=== PATIENT | male | born 1925 | race Caucasian/White ===

== ENCOUNTER → 2017-01-23 | Outpatient (REF) ==
[~2017-01-23] MED LIST: A&D OINTMENT TOP; ALDACTONE 25MG25 M1 PO; ALLERGY RELIEF10 MG PO; ASPIRIN E.C. 8181 MG PO; ASTELIN NASAL S34 ML NS; ATROVENT INHALE14 GM IH; BROVANA15 MCG/2 M IH; BROVANA15 MCG/2 M INH; BUDESONIDE0.25 MG/2 IH; BUDESONIDE0.5 MG/2 M IH; CIPRO 500MG TA500 MG PO; COLACE 100100 MG/CAP PO; COREG3.125 MG PO; COUMADIN 22.5 MG/TAB PO; COUMADIN 5MG5 MG/TAB PO; COUMADIN5 M1 PO; COUMADIN5 MG PO; DESYREL 50MG50 MG PO; EUCERIN1 CRE TOP; FLEET ENEM1 BOT/133 RC; FLONASE0.05 MG/AC NS; FLONASEALLERGY NS; INCRUSE EL62.5 MCG/A IH; KLOR-CON 1010 MEQ PO; LASIX 40MG TABL40 MG PO; LASIX20 MG PO; LEADER CLE17 GM/Dose PO; LIDOJEL UR; MILK OF MA400 MG/52 PO; NIACIN250 M2 PO; PRILOSEC 20MG20 MG PO; PRILOSEC20 M1 PO; PULMICORT0.5 MG/2 M IH; SINGULAIR 110 MG/TAB PO; SINGULAIR10 MG PO; SPIRIVA INH IH; THEO-DUR300 MG PO; THEOPHYLLINE E200 M1 PO; TRAZODONE100 MG PO; TRIAMTERENE/HCT1 TAB PO; TUMS500 MG PO; TYLENOL 325MG325 MG PO; WARFARIN SOD5 MG PO; ZOCOR80 MG PO; ZYLOPRIM 100MG100 MG PO; ZYRTEC10 M1 PO; ZYRTEC10 MG PO
== END ==
LOC: ZLAB.WCH 15:40
DX: Z02.89 Encounter for other administrative examinations (principal)

== ENCOUNTER → 2017-01-23 | Outpatient (REF) | LOC: ZLAB.WCH 16:00 | DX: Z02.89 Encounter for other administrative examinations (principal) ==

== ENCOUNTER → 2017-01-24 | Outpatient (REF) | LOC: ZLAB.WCH 08:30 | DX: Z01.89 Encounter for other specified special examinations (principal) ==

== ENCOUNTER → 2017-01-30 | Outpatient (REF) | LOC: ZLAB.WCH 10:26 | DX: Z01.89 Encounter for other specified special examinations (principal) | CPT/HCPCS: G0103 ==